=== PATIENT | female | born 1995 | race African-American/Black ===

== ENCOUNTER 2016-10-25 10:33 | Emergency (ER) | payer MEDICAID ==
[~2016-10-25] VITALS: Ht 157.5 cm; Wt 45.0 kg
[2016-10-25 10:34] VITALS: BP 127/63; PULSE 94; RESP 16; TEMP 97.8; O2SAT 99
--- NOTE | 2016-10-25 11:19 | PD ---
HPI Chief Complaint: Related Problem Time Seen by Provider: 11:02 Travel History International Travel<30 days: No Contact w/Intl Traveler<30days: No Traveled to known affect area: No History of Present Illness HPI 21-year-old female complains of low abdominal pain. Patient's about 2 months by date. Patient states that she has mild intermittent low abdominal cramping since yesterday. She denies any headache. Patient denies any chest pain or shortness of breath. Patient denies any vaginal discharge or bleeding. Patient denies any dysuria or frequency. Patient denies any back pain. Patient is 3 para 2 AB 0. Patient was seen at [facility] about 2 months ago for lightheadedness and dizziness. Patient states the blood test were normal. PFSH Past Medical History Anemia: Yes Developmental Delay: No Diminished Hearing: No Immunizations Current: Yes ?: LMP: 08/20/16 : 3 Para: 2 : 1 Past Surgical History Surgical History: No Previous Surgery Social History Alcohol Use: No Tobacco Use: No Substance Use: No Allergies-Medications (Allergen,Severity, Reaction): Coded Allergies: No Known Allergies (Verified , 10/25/16) Reported Meds & Prescriptions Reported Meds & Active Scripts Active No Active Prescriptions or Reported Medications Review of Systems General / Constitutional: No: Fever Eyes: No: Visual changes HENT: No: Headaches Cardiovascular: No: Chest Pain or Discomfort Respiratory: No: Shortness of Breath Gastrointestinal: Positive: Abdominal Pain Genitourinary: No: Dysuria Musculoskeletal: No: Pain Skin: No Rash Neurologic: No: Weakness Psychiatric: No: Depression Endocrine: No: Polydipsia Hematologic/Lymphatic: No: Easy Bruising Physical Exam Narrative GENERAL: Well-nourished, well-developed patient. SKIN: Focused skin assessment warm/dry. HEAD: Normocephalic. EYES: No scleral icterus. No injection or drainage. NECK: Supple, trachea midline. No JVD or lymphadenopathy. CARDIOVASCULAR: Regular rate and rhythm without murmurs, gallops, or rubs. RESPIRATORY: Breath sounds equal bilaterally. No accessory muscle use. GASTROINTESTINAL: Abdomen soft, non-tender, nondistended. MUSCULOSKELETAL: No cyanosis, or edema. BACK: Nontender without obvious deformity. No CVA tenderness. 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 No cervical motion tenderness. No blood in the vaginal vault. The cervix long taking close. Uterus is enlarged with nontender on palpation. No adnexal mass or tenderness. Data Data Last Documented VS Vital Signs Date Time Temp Pulse Resp B/P Pulse Ox O2 Delivery O2 Flow Rate FiO2 10/25/16 10:34 97.8 94 16 127/63 99 MDM Medical Decision Making Medical Screen Exam Complete: Yes Emergency Medical Condition: Yes Differential Diagnosis Differential diagnosis including threatened AB, incomplete AB, completed AB, ectopic . Narrative Course 21-year-old female with low abdominal pain. Patient's 2 months by date. Bedside ultrasound shows active fetus with heart rate 146. Procedures Procedure Narrative Emergency Department Pelvic ultrasound was performed with patient consent. The curvilinear probe was used in the transverse and sagittal views within the suprapubic region revealing single intrauterine . heart rate was 146. Diagnosis Primary Impression: related pelvic pain in first trimester, antepartum Patient Instructions: General Instructions Additional Instructions: Advised vitamins. Follow-up with OB physician. Return if increasing pelvic pain, vaginal bleeding. Med/Other Pt SpecificInfo: No Change to Meds Scripts No Active Prescriptions or Reported Meds Disposition: 01 DISCHARGE HOME Condition: Stable Kalpesh Lo MD October 25, 2016 11:19
== END 2016-10-25 11:44 | disposition home or self-care (01) ==
LOC: NEPD 10:33
DX: O26.891 Other specified pregnancy related conditions, first trimester (principal); R10.2 Pelvic and perineal pain; Z3A.00 Weeks of gestation of pregnancy not specified
CPT/HCPCS: 99284

== ENCOUNTER 2016-12-06 09:46 | Emergency (ER) | payer MEDICAID ==
[2016-12-06 10:21] VITALS: BP 99/54; PULSE 72; RESP 15; TEMP 98.3
--- NOTE | 2016-12-06 10:38 | PD ---
HPI Travel History International Travel<30 Days: No Contact w/Intl Traveler<30Days: No Known Affected Area: No History of Present Illness HPI This patient is a 21-year-old 4 para 2011 EDC is April 29, 2017 at 19 weeks and 3 days she presents with a chief complaint of lower abdominal pain located in the suprapubic area Patient states she's had pain throughout the entire denies rupture of membranes no vaginal bleeding the pain is described as achy to sharp intermittent nothing makes it better standing on her feet makes it worse No fever no chills positive nausea no vomiting denies any urinary tract symptoms no frequency no urgency no dribbling no dysuria no hesitancy Occasionally has some dizziness She works in the [employer] industry and is constantly on her feet and does not drink enough water Has been somewhat noncompliant with her visits which [facility] History Past Medical History Narrative Medical No known drug allergies no major medical problems Obstetric History Obstetric History First baby born April 27, 2013 female weight 6 lbs. 14 oz. vaginal delivery uncomplicated Second baby born October [birth year], 2015 male infant weight 6 lbs. 4 oz. vaginal delivery uncomplicated Voluntary interruption of in the first trimester Past Surgical History Narrative Surgical D&C with a VIP Family History Family History: Negative Social History Alcohol Use: No Tobacco Use: No Substance Abuse: No Allergies-Medications (Allergen,Severity, Reaction): Coded Allergies: No Known Allergies (Verified , 10/25/16) Home Meds No Active Prescriptions or Reported Meds Review of Systems HENT: Lightheadedness (occasional lightheadedness) Gastrointestinal: Abdominal Pain (as per history of present illness) Neurologic: Dizziness Physical Exam Vital Signs Date Time Temp Pulse Resp B/P Pulse Ox O2 Delivery O2 Flow Rate FiO2 12/06/16 10:21 98.3 72 15 99/54 Narrative GENERAL: Well-nourished, well-developed patient. Alert oriented 3 and cooperative in no acute distress SKIN: Warm and dry. HEAD: Normocephalic and atraumatic. EYES: No scleral icterus. No injection or drainage. Conjunctiva pale ENT: No nasal drainage noted. Mucous membranes pink. Airway patent. NECK: Supple, trachea midline. No JVD. No thyromegaly no lymphadenopathy CARDIOVASCULAR: Regular rate and rhythm without murmurs, gallops, or rubs. No tachycardia RESPIRATORY: Breath sounds equal bilaterally. No accessory muscle use. Lungs are clear ABDOMEN/GI: Abdomen soft, non-tender, bowel sounds present, no rebound, no guarding gravid consistent with 19 weeks mild tenderness over the right and left round ligament and in the suprapubic area no epigastric or right upper quadrant tenderness no rebound tenderness no organomegaly bowel sounds are positive Gravid to [-] weeks size 19-20 weeks size Fundal Height: [-] GENITOURINARY: Ultrasound done prior to bimanual External Genitalia: intact and normal in appearance BUS glands: [-] Cervix: [-] Posterior firm Dilatation: [-] Closed Effacement: [-] 0 Station: [-] Presentation: [-] Vertex on ultrasound Membranes: [intact Uterine Contractions: [-]0 FHT's: Category: [-] Baseline: [-] 147 Reactive: [-] Variability: [-] Decels: [-] EXTREMITIES: No cyanosis or edema. 2+ reflexes nonbrisk BACK: Nontender without obvious deformity. No CVA tenderness. NEUROLOGICAL: Awake and alert. Motor and sensory grossly within normal limits. Five out of 5 muscle strength in all muscle groups. Normal speech. Data Data Vital Signs Reviewed: Yes (temperature is 98.3 blood pressure 99/54 pulse is 72 ) Orders Urinalysis - C+S If Indicated (12/06/16 10:15) Labs Bedside ultrasound is done the BPD is 4.74 consistent with approximately 20 weeks Posterior grade 1 placenta no previa no abruption heart rate 147 Largest pocket of amniotic fluid 4.78 x 2.79 Baby is active Vertex presentation No funneling at the internal os MDM Medical Record Reviewed: No (no records available) Interpretation(s) 21-year-old at 19 weeks and 3 days Lower abdominal pain Rule out UTI Round ligament pain Noncompliant with care Narrative Course / MDM Urinalysis culture is not indicated We'll discharge patient home Musculoskeletal pain Advised to stay off her feet for the rest of the day increase by mouth fluid hydration Call the office tomorrow morning for a follow-up appointment within the next 24- 48 hours Plan By mouth fluid hydration Urinalysis Bedside ultrasound has been done Reevaluation Diagnosis Diagnosis: Primary Impression: 19 weeks gestation of Additional Impression: Musculoskeletal pain Disposition: 01 DISCHARGE HOME Condition: Stable Scripts No Active Prescriptions or Reported Meds Valeria Winkler MD Dec 06, 2016 10:38
[2016-12-06 10:52] LABS: BACTERIA, URINE OCC /hpf; BLOOD, URINE NEG (NEG); COMMENT (UR) CULT NOT INDICATED; CULTURE IF INDICATED CULT NOT INDICATED; GLUCOSE,URINE NEG (NEG); KETONE, URINE NEG (NEG); MUCUS URINE FEW /lpf (OCC); NITRITE,URINE NEG (NEG); PH, URINE 6.5 (5.0-8.5); SQUAMOUS EPITHELIAL CELL URINE <1 /hpf (0-5); URINE COLOR YELLOW (YELLW/STRAW)
== END 2016-12-06 11:16 | disposition home or self-care (01) ==
LOC: HOBED 09:46
DX: O26.899 Other specified pregnancy related conditions, unspecified trimester (principal); R52 Pain, unspecified; R10.2 Pelvic and perineal pain; R42 Dizziness and giddiness; Z3A.19 19 weeks gestation of pregnancy
CPT/HCPCS: 76815; 81001

== ENCOUNTER 2017-04-05 04:15 | Emergency (ER) | payer MEDICAID ==
--- NOTE | 2017-04-05 05:31 | PD ---
HPI Chief Complaint Abdominal cramping 2 days 36 weeks and 4 days Date Seen: Apr 05, 2017 Time Seen: 05:15 Travel History International Travel<30 Days: No Contact w/Intl Traveler<30Days: No Known Affected Area: No History of Present Illness HPI Pt is a 22yo at 36 weeks and 4 days. EDC 04-29-2017. Pt receives her care for [facility]. Pt c/o intermittent abdominal pains past 2 days. Active movements. No vaginal bleeding or leaking. Weeks Gestation: 36 Para: 2 : 3 Last Menstrual Period: Apr 05, 2017 History Past Medical History Medical History: Denies Significant Hx Obstetric History Obstetric History 2 prior SVDs Past Surgical History Surgical History: No Previous Surgery Family History Family History: Negative Social History Alcohol Use: No Tobacco Use: No Substance Abuse: No Allergies-Medications (Allergen,Severity, Reaction): Coded Allergies: No Known Allergies (Verified , 10/25/16) Home Meds No Active Prescriptions or Reported Meds Review of Systems Except as stated in HPI: all other systems reviewed are Neg Physical Exam Narrative GENERAL: Well-nourished, well-developed patient. SKIN: Warm and dry. HEAD: Normocephalic and atraumatic. EYES: No scleral icterus. No injection or drainage. ENT: No nasal drainage noted. Mucous membranes pink. Airway patent. NECK: Supple, trachea midline. No JVD. CARDIOVASCULAR: Regular rate and rhythm without murmurs, gallops, or rubs. RESPIRATORY: Breath sounds equal bilaterally. No accessory muscle use. BREASTS: Bilateral exam showed no masses , no retractions, no nipple discharge. ABDOMEN/GI: Abdomen soft, non-tender, bowel sounds present, no rebound, no guarding Gravid to [36] weeks size Fundal Height: [36] GENITOURINARY: External Genitalia: intact and normal in appearance BUS glands: [wnl] Cervix: [soft] Dilatation: [1-2cm] Effacement: [70%] Station: [-2] Presentation: [vertex] Membranes: [intact] Uterine Contractions: [irregular] FHT's: Category: [I] Baseline: [110s] Reactive: [-] Variability: [moderate] Decels: [none] EXTREMITIES: No cyanosis or edema. BACK: Nontender without obvious deformity. No CVA tenderness. NEUROLOGICAL: Awake and alert. Motor and sensory grossly within normal limits. Five out of 5 muscle strength in all muscle groups. Normal speech. Data Data Vital Signs Reviewed: Yes MDM Plan Pt is a 22yo at 36 weeks and 4 days. Pt presents with irregular contractions. Cervix 1-2 cm dilated. Plan repeat cervical exam in 1hour Patient made no cervical change at repeat exam in hour. FHR tracing remains Cat 1 Reamains with irregular contractions. Diagnosis Diagnosis: Primary Impression: 36 weeks gestation of Additional Impression: False labor Disposition: 01 DISCHARGE HOME Condition: Good Scripts No Active Prescriptions or Reported Meds Benny Gillette MD Apr 05, 2017 05:31
== END 2017-04-05 06:39 | disposition home or self-care (01) ==
LOC: HOBED 04:15
DX: O47.03 False labor before 37 completed weeks of gestation, third trimester (principal); Z3A.36 36 weeks gestation of pregnancy
CPT/HCPCS: 59025

== ENCOUNTER 2017-08-28 18:08 | Emergency (ER) | payer SELFPAY ==
[~2017-08-28] VITALS: Ht 160 cm; Wt 43.0 kg
[2017-08-28 18:13] VITALS: BP 127/72; PULSE 92; RESP 18; TEMP 98.8; O2SAT 98
--- NOTE | 2017-08-28 20:17 | PD ---
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 Patient states that symptoms started 2 days ago. Patient denies any headache. Patient denies any chest pain shortness of breath. Patient denies any nausea vomiting diarrhea. Patient denies any dysuria frequency. Patient denies any fever chills. Patient states that her last menstruation period ended 2 days ago. PFSH Past Medical History Anemia: Yes Developmental Delay: No Diminished Hearing: No Immunizations Current: Yes ?: Not LMP: 08-25-17 : 3 Para: 2 : 1 Social History Alcohol Use: No Tobacco Use: No Substance Use: No Allergies-Medications (Allergen,Severity, Reaction): Coded Allergies: No Known Allergies (Verified Adverse Reaction, Unknown, 08/28/17) Reported Meds & Prescriptions Reported Meds & Active Scripts Active No Active Prescriptions or Reported Medications Review of Systems General / Constitutional: No: Fever Eyes: No: Visual changes HENT: No: Headaches Cardiovascular: No: Chest Pain or Discomfort Respiratory: No: Shortness of Breath Gastrointestinal: No: Abdominal Pain Genitourinary: Positive: Pelvic Pain, Discharge, No: Dysuria Musculoskeletal: No: Pain Skin: No Rash Neurologic: No: Weakness Psychiatric: No: Depression Endocrine: No: Polydipsia Hematologic/Lymphatic: No: Easy Bruising Physical Exam Narrative GENERAL: Well-nourished, well-developed patient. SKIN: Focused skin assessment warm/dry. HEAD: Normocephalic. EYES: No scleral icterus. No injection or drainage. NECK: Supple, trachea midline. No JVD or lymphadenopathy. CARDIOVASCULAR: Regular rate and rhythm without murmurs, gallops, or rubs. RESPIRATORY: Breath sounds equal bilaterally. No accessory muscle use. GASTROINTESTINAL: Abdomen soft, non-tender, nondistended. MUSCULOSKELETAL: No cyanosis, or edema. BACK: Nontender without obvious deformity. No CVA tenderness. 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 No cervical motion tenderness. Uterus is nonenlarged and nontender palpation. No adnexal mass or tenderness. Data Data Last Documented VS Vital Signs Date Time Temp Pulse Resp B/P (MAP) Pulse Ox O2 Delivery O2 Flow Rate FiO2 08/28/17 18:13 98.8 92 18 127/72 (90) 98 Orders Orders Gc And Chlamydia Pcr (08/28/17 20:11) Wet Prep Profile (08/28/17 20:11) Ed Urine Pregnancytest Poc (08/28/17 20:11) MDM Medical Decision Making Medical Screen Exam Complete: Yes Emergency Medical Condition: Yes Differential Diagnosis Differential diagnosis including bacterial vaginosis, the vaginitis, cervicitis , PID. Narrative Course 22-year-old female with pelvic pain and vaginal discharge.. Rocephin 250 mg IM. Zithromax 1 g p.o. Diagnosis Primary Impression: Cervicitis Patient Instructions: General Instructions Additional Instructions: Flagyl as directed. Ibuprofen for pain. Follow-up with local physician. Return if worse. Med/Other Pt SpecificInfo: Prescription(s) given Scripts Metronidazole (Flagyl) 500 Mg Tab 2000 MG PO ONCE for Infection, #4 TAB 0 Refills Prov: Kalpesh Lo MD 08/28/17 Disposition: 01 DISCHARGE HOME Condition: Stable Kalpesh Lo MD Aug 28, 2017 20:17
[2017-08-28] MEDS ORDERED: METR-1 PO (21:04)
[2017-08-28] MEDS ORDERED: cefTRIAXone 250 MG VIAL IM ONE (21:15)
[2017-08-28] MEDS ORDERED: AZITHROMYCIN PWD FOR SUSP 1 GM PACKET PO ONE (21:15)
== END 2017-08-28 21:26 | disposition home or self-care (01) ==
LOC: NEPD 18:08
DX: N72 Inflammatory disease of cervix uteri (principal); D64.9 Anemia, unspecified
CPT/HCPCS: 84703; 87210; 87491; 87591; 99283